=== PATIENT | male | born 1985 ===

== ENCOUNTER 2025-02-02 10:23 | Outpatient (AMB) | payer OTHER, SELFPAY ==
--- NOTE | 2025-02-02 10:26 | HO.SPINEOV ---
Vital Signs 02/02/25 10:38 Height 5 ft 9 in Weight 233 lb BMI 34.4 Intake Visit Reasons: lumbar radiculopathy Intake Note: Mr. Mary Johnson is here today c/o Neck and low back pain that radiates down the right leg causing numbness and tingling. 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 This is a 39-year-old diabetic gentleman presents to the office today for evaluation of low back pain and a right lumbar radiculopathy. He has had back pain for many years but tells me in the last 7 months he has had progression of the leg pain which starts in the right side of his low back goes into his buttock down his posterior hamstring into his posterior calf with tingling on the outer part of his right foot. The pain is aggravated with standing walking and moving. He was working at [employer] and being on his feet all day definitely seemed to make it worse. Through your office he has done conservative management including 2 separate cortisone injections. One was in the right S1 nerve root in that had no relief. The 2nd was L4-5 epidural and that made the symptoms aggravated but then they eventually came back down to normal level of symptoms. He has done physical therapy when he was living in [place] about a year and a half ago. He has been on tramadol, gabapentin, anti-inflammatories and cyclobenzaprine without any relief. He comes in today with an MRI showing stenosis at L2-3 and disc bulging on the right at L4-5. PMH: He is a diabetic, he can not recall what his A1c was. In the [facility] record of [place] it looks like his A1c was 6. He has some hypertension but that is well controlled as well. No history of cardiopulmonary disease or other systemic issues. He has never had surgery. Social hx: Smoke cigarettes less than a pack a day, no marijuana and occasionally drinks alcohol Medications: Lipitor lisinopril and metformin Allergies: No drug allergies Physical exam: Awake alert oriented, he is uncomfortable with standing and walking he has an antalgic gait, straight leg raise at 30 degrees, strength testing is limited secondary to pain throughout the whole right leg. Reflexes are intact at the patella and the Achilles. Imaging review: Lumbar MRI done at the [facility] shows that he has a congenitally narrow spinal canal, moderate to severe stenosis at L2-3, at L4-5 he has a disc protrusion on the right causing moderate to severe right lateral recess narrowing. At L5-S1 on the left he has disc bulging and posterior displacement of the left S1 nerve. Impression: 39-year-old male presents for evaluation of chronic back pain and superimposed right lumbar radiculopathy which developed about 7 months ago. It best localizes itself to the S1 distribution however the lumbar MRI does not show any compression of the S1 nerve locally at the disc space. His exam is limited secondary to pain with diffuse weakness throughout his whole right leg but it seems to be more pain related than actually neurologically weak. He has intact Achilles reflex and patellar. He does have stenosis at L2-3 centrally and L4-5 on the right in the lateral recess. It is possible that this is an atypical presentation, but given his history of diabetes we should see if we can localize this a little bit better. I will order an EMG of the right lower extremity to see if this is a diabetic polyneuropathy versus lumbar in origin. Hopefully the EMG can localize it to a level of the spine maybe the L4-5 where he has a lateral recess narrowing. Once the EMG is completed I will review the imaging with Dr. Bhardwaj and get back to the patient with the plan. Thank you for allowing us to care for your patient. The total time spent with this visit with this patient was 45 minutes reviewing history, physical exam, lumbar imaging review, and implementation of treatment plan or further diagnostic testing Kaveh Mir MD,PhD [facility] Orders: Orders NE electromyogram (EMG) Today M54.16 - Radiculopathy, lumbar region Coding Level of Care Code New Pt Level 4 (37235) Diagnoses Lumbar radiculopathy M54.16
[2025-02-02 10:38] VITALS: BMI 34.4
--- OUTSIDE RECORDS SUMMARY | 2025-02-02 11:41 | XMS_ITS | Clinical Summary ---
Author Organization [address] Address [address] [place] [phone] Phone Care Team Providers Care Spice Miller Name Role Phone Regino Camejo MD Primary Care Provider Allergies No known active allergies Medications nicotine polacrilex (COMMIT) 4 mg lozengeIndications :Tobacco dependency Dissolve 1 lozenge (4 mg total) in the mouth every 2 (two) hours if needed for smoking cessation. 30 lozenge 1 4 Active nicotine (NICODERM CQ) 21 mg/24 hrIndications:Toba chartered accountant dependency Place 1 patch on the skin 1 (one) time each day at the same time. 30 each 1 4 Active cyclobenzaprine (FLEXERIL) 10 mg tablet Take 1 tablet (10 mg total) by mouth 3 (three) times a day if needed for muscle spasms. 90 tablet 11 5 Active naproxen (NAPROSYN) 500 mg tablet Take 1 tablet (500 mg total) by mouth 2 (two) times a day if needed for mild pain (pain). 60 tablet 5 5 025 Active atorvastatin (LIPITOR) 20 mg tablet Take 1 tablet (20 mg total) by mouth 1 (one) time each day. 90 each 1 5 Active lisinopriL (PRINIVIL,ZESTRIL) 10 mg tablet Take 1 tablet (10 mg total) by mouth 1 (one) time each day. 90 each 1 5 Active metFORMIN XR (GLUCOPHAGE-XR) 500 mg 24 hr tablet Take 1 tablet (500 mg total) by mouth 2 (two) times a day with meals. Do not crush, chew, or split. 180 each 1 5 Active traMADoL (ULTRAM) 50 mg tabletIndications: Degeneration of intervertebral disc of lumbar region with discogenic back pain and lower extremity pain Take 2 tablets (100 mg total) by mouth 2 (two) times a day if needed for severe pain for up to 28 days. Max Daily Amount: 200 mg 112 tablet 5 025 Active traMADoL (ULTRAM) 50 mg tabletIndications: Degeneration of intervertebral disc of lumbar region with discogenic back pain and lower extremity pain Take 2 tablets (100 mg total) by mouth 2 (two) times a day if needed for severe pain for up to 28 days. Max Daily Amount: 200 mg 112 tablet 5 025 Discontin ued(Reord er) Active Problems Problem Noted Date Diagnosed Date Other hyperlipidemia 06/05/2024 Type 2 diabetes mellitus wit h obesity ([facility] V24, [facility] V28) 06/05/2024 Type 2 diabetes mellitus wit h hyperglycemia, without long-term current use of insulin ([facility] V24, [facility] V28) 06/05/2024 Metabolic dysfunction-associ ated steatotic liver disease (MASLD) 05/15/2024 Influenza vaccine refused 05/15/2024 Pneumococcal vaccine refused 05/15/2024 Lumbar degenerative disc disease 11/23/2022 Overview (08/21/2023): Last Assessment & Plan: Mr. Hernandez describes a 6-year history of low back pain and bilateral S1 distribution radiculopathy. He says his pain is 90% back and 10% legs. His MRI of the lumbar reveals desiccation at L4-5 and L5-S1 with out loss of height. There are minimal disc bulges and foraminal stenosis that likely correlate to his leg symptoms. He has been through physical therapy without relief. NSAIDs have not provided much relief and a course of oral steroids caused chest pain. We but we talked about nicotine and its relationship to accelerated degenerative changes in the spine. I made strong recommendations that he make every effort towards smoking cessation. We talked about his body habitus and I encouraged him to get as close as possible to his ideal body weight. We talked about acupuncture, yoga, natural anti-inflammatory agents, and inversion table all as reasonable conservative modalities. I used models and showed him what the future could hold with regards to lumbar fusion but encouraged him to make lifestyle changes that would help him avoid that conclusion. He said he had seen similar models in [place] and was not interested in any kind of surgery. He took some information on acupuncture and promised to try to quit smoking. He is welcome to follow-up with us in the future on an as-needed basis. Claustrophobia 07/17/2022 Hypertension 07/17/2022 Lumbar herniated disc 07/17/2022 Resolved Problems Problem Noted Date Diagnosed Date Resolved Date Obesity, morbid (CMS/HCC V24, CMS/HCC V28) 09/04/2024 09/04/2024 Encounters Date Type Department Care Team Description 11/20/2024 3:00 PM EDT Office Visit Adult Medicine [address] [phone] Heavenly Devries PA Primary hypertension (Primary Dx); Mixed hyperlipidemia; Type 2 diabetes mellitus with obesity (CMS/HCC V24, CMS/HCC V28); Metabolic dysfunction-associated steatotic liver disease (MASLD); Tobacco dependency; Lumbar herniated disc from Last 3 Months Immunizations Name Administration Dates Next Due Hepatitis A Adult (Havrix; Vaqta) 19yo and older 06/05/2024 Tdap Tetanus diptheria acell ular pertussis (Boostrix; Adacel) 7yo and older 10/18/2016 Surgical History Surgery Date Site/Laterality Comments OTHER SURGICAL HISTORY PROCEDURE: DENIES PREVIOUS SURGERY Medical History Medical History Date Comments HTN (hypertension) DX:HTN (hyper tension) Family History Medical History Relation Name Comments Hypertension Father Prostate cancer Father Relation Name Status Comments Father Social History Tobacco Use Types Packs/Day Years Used Date Smoking Tobacco: Some Days Smokeless Tobacco: Never Tobacco Cessation:Ready to Q uit: Not Asked; Counseling Given: Not Answered Alcohol Use Standard Drinks/Week Comments Yes 1 (1 standard drink = 0.6 oz pur e alcohol) Housing Instability Answer Date Recorde d Are you worried that in the next 2 months you may not have stable housing? No 10/14/2024 Food Access & Nutrition Answer Date Rec orded Do you have access to a vari ety of food including fruits and vegetables? Yes 10/14/2024 Health Literacy Answer Date Recorded How often do you need to hav e someone help you when you read instructions, pamphlets, or other written material from your doctor or pharmacy? Never 10/14/2024 Caregiver: How often do you need to have someone help you when you read instructions, pamphlets, or other written material from your doctor or pharmacy? Not on file 10/14/2024 Financial Risk Answer Date Recorded How hard is it for you to pa y for the very basics like food, housing, medical care, and air conditioning / heating? Not very hard 10/14/2024 Transportation Answer Date Recorded Has the lack of transportati on kept you from meetings, work, or from getting things needed for daily living? No Has the lack of transportati on kept you from medical appointments or from getting medications? No 10/14/2024 Social Isolation Answer Date Recorded How often do you feel lonely or isolated from th ose around you? Never 10/14/2024 Food Risk Answer Date Recorded Within the past 12 months we worried whether our food would run out before we got money to buy more. Never true 10/14/2024 Within the past 12 months th e food we bought just didn't last and we didn't have money to get more. Never true 10/14/2024 Dependent Care Answer Date Recorded Do you need help finding or paying for care for your loved ones. For example, child care worker or elderly care for an older adult? No 10/14/2024 Education Answer Date Recorded Do you think completing more education or training, like finishing a GED, going to college, or learning a trade, would be helpful for you? No 10/14/2024 Employment and Income Answer Date Recor ded During the last four weeks, have you been actively looking for work? No 10/14/2024 Living Situation Answer Date Recorded What is your living situation? 0 10/14/2024 Sex and Gender Information Value Date Recorded Sex Assigned at Not on file Legal Sex Male 12:31 PM EST Gender Identity Not on file Sexual Orientation Not on file Obstetrics History Last Filed Vital Signs Vital Sign Reading Time Taken Comments Blood Pressure 132/88 11/20/2024 2:49 PM EDT Pulse 95 11/20/2024 2:49 PM EDT Temperature 36.8 C (98.2 F) 11/20/2024 2:49 PM EDT Respiratory Rate 14 11/20/2024 2:49 PM EDT Oxygen Saturation 98% 05/15/2024 10:37 AM EST Inhaled Oxygen Concentration - - Weight 106 kg (234 lb 9.6 oz) 11/20/2024 2:49 PM EDT Height 175.3 cm (5' 9 ) 11/20/2024 2:49 PM EDT Body Mass Index 34.64 11/20/2024 2:49 PM EDT Plan of Treatment Upcoming Encounters Date Type Department Care Team (Late st Contact Info) Description 2025 3:30 PM EDT Office Visit Adult Medicine [facility] [address] [place] [phone] Regino Camejo MD [address] [place] [address] Health Maintenance Due Date Last Done Comments Diabetes: Annual Retina Eye Exam 1993 COVID-19 Vaccine ( season) 2024 Depression Screening 06/17/2024 01/10/2024 Diabetes: Blood Sugar Control Test (HGBA1C) 03/07/2025 09/04/2024, 05/29/2024 Diabetes: Annual Foot Exam 06/05/2025 06/05/2024 Diabetes: Annual Urine Albumin-Creatinine Ratio (uACR) 09/04/2025 09/04/2024 Diabetes: Annual GFR (Glomerular Filtration Rate) 09/04/2025 09/04/2024, 05/15/2024, 01/10/2024, Additional history exists Hypertension/CHF/CAD Annual BMP Blood Test 09/04/2025 09/04/2024, 05/15/2024, 01/10/2024, Additional history exists Social Influencers of Health Screening 10/14/2025 10/14/2024 DTaP,Tdap,and Td Vaccines (2 - Td or Tdap) 10/18/2026 10/18/2016 Cholesterol Screening (Lipid Panel) 09/04/2029 09/04/2024, 05/15/2024, 01/10/2024, Additional history exists HIV Screening Completed 12/21/2022 Hepatitis C Screening Completed 05/15/2024, 023 Hepatitis A Vaccines Aged Out 06/05/2024 No long er eligible based on patient's age to complete this topic HIB Vaccines Aged Out No longer eligi ble based on patient's age to complete this topic HPV Vaccines Aged Out No longer eligi ble based on patient's age to complete this topic Hepatitis B Vaccines Discontinued IPV Vaccines Aged Out No longer eligi ble based on patient's age to complete this topic Influenza Vaccine Discontinued MMR Vaccines Aged Out No longer eligi ble based on patient's age to complete this topic Meningococcal ACWY Vaccine Aged Out N o longer eligible based on patient's age to complete this topic Meningococcal B Vaccine Aged Out No l onger eligible based on patient's age to complete this topic Pneumococcal Vaccine: Pediatrics (0 to 5 Years) and At-Risk Patients (6 to 49 Years) Discontinued RSV Immunization Patients Under 20 months Aged Out No longer eligible based on patient's age to complete this topic Varicella Vaccines Aged Out No longer eligible based on patient's age to complete this topic Procedures Procedure Name Priority Date/Time Associated Diagnosis Comments MICROALBUMIN CREATININE URINE RATIO Routine 09/04/2024 10:33 AM EDT Type 2 diabetes mellitus with hyperglycemia, without long-term current use of insulin ([facility] V24, [facility] V28) [facility] 2 diabetes mellitus with obesity ([facility] V24, [facility] V28) COMPREHENSIVE METABOLIC PANEL Routine 09/04/2024 10:33 AM EDT Type 2 diabetes mellitus with hyperglycemia, without long-term current use of insulin ([facility] V24, [facility] V28) Type 2 diabetes mellitus with obesity ([facility] V24[facility] V28) HEMOGLOBIN A1C Routine 09/04/2024 10:33 AM EDT Type 2 diabetes mellitus with hyperglycemia, without long-term current use of insulin ([facility] V24, [facility] V28) Type 2 diabetes mellitus with obesity ([facility] V24, [facility]/HCC V28) LIPID PANEL WITH REFLEX TO DIRECT LDL Routine 09/04/2024 10:33 AM EDT Type 2 diabetes mellitus with hyperglycemia, without long-term current use of insulin (CMS/HCC V24, CMS/HCC V28) Type 2 diabetes mellitus with obesity (CMS/HCC V24, CMS/HCC V28) HEPATITIS PANEL, ACUTE WITH REFLEX TO CONFIRMATION Routine 05/15/2024 11:34 AM EST Metabolic dysfunction-associ ated steatotic liver disease (MASLD) DEPRESSION SCREENING Routine 01/10/2024 HIV SCREENING Routine 12/21/2022 from Last 3 Months or Most Recently Relevant to Health Maintenance Results * (ABNORMAL) Lipid panel with reflex to direct LDL (09/04/2024 10:33 AM EDT) Cholesterol 69 0 - 200 mg/dL LAB CHEMISTRY METHOD 09/04/2024 3:[address] [facility] Triglycerides 87 0 - 150 mg/dL LAB CHEMISTRY METHOD 09/04/2024 3:[address] [facility] HDL 27(L) >=40 mg/dL LAB CHEMISTRY METHOD 09/04/2024 3:[address] [facility] LDL Calculated 25 0 - 100 mg/dL LAB CHEMISTRY METHOD 09/04/2024 3:[address] [facility] VLDL Cholesterol Anoop 17.4 mg/dL LAB CHEMISTRY METHOD 09/04/2024 3:[address] [facility] Non HDL Chol. (LDL+VLDL) 42 <145 mg/dL LAB CHEMISTRY METHOD 09/04/2024 3:[address] [facility] Chol/HDL Ratio 2.6 0.0 - 4.4 LAB CHEMISTRY METHOD 09/04/2024 3:[address] [facility] Blood Venous blood specimen / Unknown Venipuncture / Unknown 09/04/2024 10:33 AM EDT 09/04/2024 10:33 AM EDT us Regino Camejo MD LAB BLOOD ORDERABLES F inal Result Performing Organization Address [facility]/ZIP Co de Phone Number [facility] [address] [place] [address], [place] [phone] * Microalbumin creatinine urine ratio (09/04/2024 10:33 AM EDT) Creatinine, Urine 152.0 mg/dL LAB CHEMISTRY METHOD 09/04/2024 3:39 PM EDT [facility] Microalb, Ur 10.0 0.0 - 29.0 mg/L LAB CHEMISTRY METHOD 09/04/2024 3:39 PM EDT [facility] Microalb/Creat Ratio 7 <30 mg/g creat LAB CHEMISTRY METHOD 09/04/2024 3:39 PM EDT [facility] Urine Urine specimen obtained by clean catch procedure / Unknown Non-blood Collection / Unknown 09/04/2024 10:33 AM EDT 09/04/2024 10:33 AM EDT us Regino Camejo MD LAB URINE ORDERABLES F inal Result Performing Organization Address City/[facility]/ZIP Co de Phone Number [facility] [address] [place] [address], [place] [phone] * Hemoglobin A1c (09/04/2024 10:33 AM EDT) Hemoglobin A1C 6.0 <6.5 % LAB CHEMISTRY METHOD 09/04/2024 1:31 PM EDT [facility] Mean Bld Glu Estim. 126 mg/dL LAB CHEMISTRY METHOD 09/04/2024 1:31 PM EDT [facility] Blood Venous blood specimen / Unknown Venipuncture / Unknown 09/04/2024 10:33 AM EDT 09/04/2024 10:33 AM EDT us Regino Camejo MD LAB BLOOD ORDERABLES F inal Result [facility] [address] [place] [address], [place] [phone] * Comprehensive metabolic panel (09/04/2024 10:33 AM EDT) [facility] Sodium 136 133 - 145 mmol/L LAB CHEMISTRY METHOD 09/04/2024 3:40 PM EDT [facility] Potassium 3.8 3.5 - 5.5 mmol/L LAB CHEMISTRY METHOD 09/04/2024 3:[address] [facility] Chloride 101 96 - 110 mmol/L LAB CHEMISTRY METHOD 09/04/2024 3:[address] [facility] CO2 28 21 - 32 mmol/L LAB CHEMISTRY METHOD 09/04/2024 3:[address] [facility] Anion Gap 7 3 - 11 LAB CHEMISTRY METHOD 09/04/2024 3:[address] [facility] Glucose 86 70 - 100 mg/dL LAB CHEMISTRY METHOD 09/04/2024 3:[address] [facility] BUN 15 5 - 25 mg/dL LAB CHEMISTRY METHOD 09/04/2024 3:40 PM T [facility] Creatinine 0.87 0.70 - 1.30 mg/dL LAB CHEMISTRY METHOD 09/04/2024 3:[address] [facility] eGFR 111 >=60 mL/min/1. 73m2 LAB CHEMISTRY METHOD 09/04/2024 3:[address] [facility] Comment:Calculation based on the Chronic Kidney Disease Epidemiology Collaboration (CKD-EPI) equation refit without adjustment for race. BUN/Creatinine Ratio 17.2 LAB CHEMISTRY METHOD 09/04/2024 3:40 PM EDT [facility] Calcium 9.2 8.5 - 10.5 mg/dL LAB CHEMISTRY METHOD 09/04/2024 3:40 PM EDT [facility] AST (SGOT) 21 10 - 42 unit/L LAB CHEMISTRY METHOD 09/04/2024 3:40 PM T [facility] ALT (SGPT) 51 10 - 60 unit/L LAB CHEMISTRY METHOD 09/04/2024 3:40 PM EDT [facility] Alkaline Phosphatase 88 42 - 121 unit/L LAB CHEMISTRY METHOD 09/04/2024 3:40 PM EDT [facility] Total Protein 7.2 6.0 - 8.0 g/dL LAB CHEMISTRY METHOD 09/04/2024 3:[address] [facility] Albumin 4.1 3.2 - 5.0 g/dL LAB CHEMISTRY METHOD 09/04/2024 3:[address] [facility] Total Bilirubin 0.5 0.0 - 1.4 mg/dL LAB CHEMISTRY METHOD 09/04/2024 3:[address] [facility] Blood Venous blood specimen / Unknown Venipuncture / Unknown 09/04/2024 10:33 AM EDT 09/04/2024 10:33 AM EDT Regino Camejo MD LAB BLOOD ORDERABLES F inal Result [facility] [address] [place] [address], * Hepatitis panel, acute with reflex to confirmation (05/15/2024 11:34 AM EST) Hepatitis B Surface Ag Negative Negative LAB CHEMISTRY METHOD 05/15/2024 2:58 PM EST [facility] Hepatitis A Antibody IgM Negative Negative LAB CHEMISTRY METHOD 05/15/2024 2:58 PM EST [facility] Hep B Core IgM Negative Negative LAB CHEMISTRY METHOD 05/15/2024 2:58 PM EST [facility] Hepatitis C Antibody Negative Negative LAB CHEMISTRY METHOD 05/15/2024 2:58 PM EST [facility] Blood Venous blood specimen / Unknown Venipuncture / Unknown 05/15/2024 11:34 AM EST 05/15/2024 11:34 AM EST Regino Camejo MD LAB BLOOD ORDERABLES F inal Result [facility] [address] [place] [address], * Depression Screening (01/10/2024) Depression Screening abstracted Historical Provider HEALTH MAINTENANCE Final Result * HIV Screening (12/21/2022) HIV Screening abstracted Historical Provider HEALTH MAINTENANCE Final Result from Last 3 Months or Most Recently Relevant to Health Maintenance [place] [address] [place] [id number] [employer]ALTH PLAN Care Teams Spice Miller Relationship Specialty Start Date End Date Regino Camejo MD [address] [place] [address] PCP - General 07/06/22
== END 2025-02-02 11:41 | disposition home or self-care (01) ==
LOC: HO.HNS 10:23
PROVIDERS: PCP Internal Medicine; Referring Provider Physician Assistant; Visit Provider Physician Assistant
DX: M54.16 Radiculopathy, lumbar region (principal)
CPT/HCPCS: 99204

== ENCOUNTER → 2025-02-02 10:23 | Outpatient (BNVA) | payer OTHER, SELFPAY | PROVIDERS: PCP Internal Medicine; Referring Provider Physician Assistant; Visit Provider Physician Assistant | DX: M54.16 Radiculopathy, lumbar region (principal) | CPT/HCPCS: 99202 ==

== ENCOUNTER 2025-05-28 14:38 | Outpatient (REF) | payer OTHER, SELFPAY ==
--- OUTSIDE RECORDS SUMMARY | 2025-05-28 19:50 | XMS_ITS | Clinical Summary ---
Author Organization [facility] [address] [place] [address] [place] [phone] Phone Care Team Providers Care Disc Inspector Name Role Phone Regino Camejo MD Primary Care Provider Allergies No known active allergies Medications cyclobenzaprine (FLEXERIL) 10 mg tablet Take 1 tablet (10 mg total) by mouth 3 (three) times a day if needed for muscle spasms. 90 tablet 11 10/15/19 25 Active naproxen (NAPROSYN) 500 mg tablet Take 1 tablet (500 mg total) by mouth 2 (two) times a day if needed for mild pain (pain). 60 tablet 5 10/15/19 25 025 Active atorvastatin (LIPITOR) 20 mg tablet Take 1 tablet (20 mg total) by mouth 1 (one) time each day. 90 each 1 11/21/19 25 Active lisinopriL (PRINIVIL,ZESTRIL ) 10 mg tablet Take 1 tablet (10 mg total) by mouth 1 (one) time each day. 90 each 1 11/21/19 25 Active traMADoL (ULTRAM) 50 mg tabletIndications :Degeneration of intervertebral disc of lumbar region with discogenic back pain and lower extremity pain Take 2 tablets (100 mg total) by mouth 2 (two) times a day if needed for severe pain. Max Daily Amount: 200 mg 112 tablet 05/21/20 25 Active Mounjaro 7.5 mg/0.5 mL injection Inject 0.5 mL (7.5 mg total) under the skin every 7 (seven) days. 2 mL 05/21/20 25 Active metFORMIN XR (GLUCOPHAGE-XR) 500 mg 24 hr tablet TAKE 1 TABLET (500 MG TOTAL) BY MOUTH 2 (TWO) TIMES A DAY WITH MEALS. DO NOT CRUSH, CHEW, OR SPLIT. 180 tablet 1 05/26/20 Active metFORMIN XR (GLUCOPHAGE-XR) 500 mg 24 hr tablet Take 1 tablet (500 mg total) by mouth 2 (two) times a day with meals. Do not crush, chew, or split. 180 each 1 11/21/19 25 025 Discontinued traMADoL (ULTRAM) 50 mg tabletIndications :Degeneration of intervertebral disc of lumbar region with discogenic back pain and lower extremity pain Take 2 tablets (100 mg total) by mouth 2 (two) times a day if needed for severe pain. Max Daily Amount: 200 mg 112 tablet 04/23/20 025 Discontinued(Re order) Mounjaro 5 mg/0.5 mL injectionIndicati ons: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 ([facility] V24, [facility] V28) Inject 0.5 mL (5 mg total) under the skin every 7 (seven) days. 2 mL 04/23/20 025 Discontinued Active Problems Problem Noted Date Diagnosed Date Other hyperlipidemia 06/05/2024 Type 2 diabetes mellitus with obesity 06/05/2024 Overview (03/17/2025): 03/17/25 Regulatory IMO Update Metabolic dysfunction-associ ated steatotic liver disease (MASLD) [...] said he had seen similar models in [place] and was not interested in any kind of surgery. He took some information on acupuncture and promised to try to quit smoking. He is welcome to follow-up with us in the future on an as-needed basis. 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 (CMS/HCC V24, CMS/HCC V28) (Primary Dx); Degeneration of intervertebral disc of lumbar region with discogenic back pain and lower extremity pain; Hypertension, unspecified type; Metabolic dysfunction-associated steatotic liver disease (MASLD); Long-term use of high-risk medication from Last 3 Months Immunizations Immunization Administration Dates Next Due Hepatitis A Adult (Havrix; Vaqta) 19yo and older 06/05/2024 Tdap Tetanus diptheria acell ular pertussis (Boostrix; Adacel) 7yo and older 10/18/2016 Surgical History Surgery Date Site/Laterality Comments OTHER SURGICAL HISTORY PROCEDURE: DENIES PREVIOUS SURGERY Medical History Medical History Date Comments HTN (hypertension) DX:HTN (hyper tension) Type 2 diabetes mellitus wit h hyperglycemia, without long-term current use of insulin ([facility] V24, [facility] V28) 06/05/2024 Family History Medical History Relation Name Comments [...] care for your loved ones. For example, children's zoo caretaker or elderly care for an older adult? [...] Date Recorded What is your living situation? Unrecognized valu e 10/14/2024 Sex and Gender Information Value Date Recorded Sex Assigned at Not on file Legal Sex Male 12:31 PM EST Gender Identity Not on file Sexual Orientation Not on file Last Filed Vital Signs Vital Sign Reading Time Taken Comments Blood Pressure 120/75 03/25/2025 1:29 PM EDT Pulse 96 03/25/2025 1:14 PM EDT Temperature 35.9 C (96.6 F) 03/25/2025 1:14 PM EDT Respiratory Rate 18 03/25/2025 1:14 PM EDT Oxygen Saturation 96% 03/25/2025 1:14 PM EDT Inhaled Oxygen Concentration - - Weight 110 kg (242 lb) 03/25/2025 1:14 PM EDT Height 175.3 cm (5' 9 ) 03/25/2025 1:14 PM EDT Body Mass Index 35.74 03/25/2025 1:14 PM EDT Plan of Treatment Upcoming Encounters Date Type Department Care Team (Late st Contact Info) Description 07/30/2025 1:00 PM EST Office Visit Adult Medicine [facility] [address] [place], [place] [phone] Regino Camejo MD [address] [place], [place] Health Maintenance Due Date Last Done Comments Drug Screen 1983 Naloxone Order 1983 Pain Assessment 1983 Diabetes: Annual Retina Eye Exam 1993 Depression Screening 06/17/2024 01/10/2024 COVID-19 Vaccine ( season) 2025 Diabetes: Annual Foot Exam 06/05/2025 06/05/2024 Diabetes: Blood Sugar Control Test (HGBA1C) 09/23/2025 03/25/2025, 09/04/2024, 05/29/2024 Social Influencers of Health Screening 10/14/2025 10/14/2024 Opioid Substance Agreement 11/14/2025 11/13/2025 Diabetes: Annual Urine Albumin-Creatinine Ratio (uACR) 03/25/2026 03/25/2025, 09/04/2024 Diabetes: Annual GFR (Glomerular Filtration Rate) 03/25/2026 03/25/2025, 09/04/2024, 05/15/2024, Additional history exists Hypertension/CHF/CAD Annual BMP Blood Test 03/25/2026 03/25/2025, 09/04/2024, 05/15/2024, Additional history exists DTaP,Tdap,and Td Vaccines (2 - Td or Tdap) 10/18/2026 10/18/2016 Cholesterol Screening (Lipid Panel) 03/25/2030 03/25/2025, 09/04/2024, 05/15/2024, Additional history exists RSV Immunization Adult Patients (1 - 1-dose 75+ series) 2058 HIV Screening Completed 12/21/2022 Hepatitis C Screening Completed 05/15/2024, 023 Hepatitis A Vaccines Aged Out 06/05/2024 No long er eligible based on patient's age to complete this topic HIB Vaccines Aged Out No longer eligi ble based on patient's age to complete this topic HPV Vaccines Discontinued Hepatitis B Vaccines Discontinued IPV Vaccines Aged [...] Procedure Name Priority Date/Time Associated Diagnosis Comments LIPID PANEL WITH REFLEX TO DIRECT LDL Routine 03/25/2025 1:47 PM EDT 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 ([facility]/HCC V24, [facility]/HCC V28) MICROALBUMIN CREATININE URINE RATIO Routine 03/25/2025 1:47 PM EDT 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 ([facility]/HCC V24, CMS/[facility] V28) COMPREHENSIVE METABOLIC PANEL Routine 03/25/2025 1:47 PM EDT 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 ([facility]/HCC V24, CMS/HCC V28) HEMOGLOBIN A1C Routine 03/25/2025 1:47 PM EDT 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 ([facility]/HCC V24, CMS/[facility] V28) LIVER FIBROSIS, FIBROTEST-ACTITEST PANEL Routine 03/25/2025 1:47 PM EDT Metabolic dysfunction-associ ated steatotic liver disease (MASLD) HEPATITIS PANEL, ACUTE WITH REFLEX TO CONFIRMATION Routine 05/15/2024 11:34 AM EST Metabolic dysfunction-associ ated steatotic liver disease (MASLD) DEPRESSION SCREENING Routine 01/10/2024 HIV SCREENING Routine 12/21/2022 from Last 3 Months or Most Recently Relevant to Health Maintenance Results * (ABNORMAL) Lipid panel with reflex to direct LDL (03/25/2025 1:47 PM EDT) Cholesterol 77 0 - 200 mg/dL LAB CHEMISTRY METHOD 03/25/2025 4:54 PM EDT [facility] Triglycerides 69 0 - 150 mg/dL LAB CHEMISTRY METHOD 03/25/2025 4:54 PM EDT [facility] HDL 32(L) >=40 mg/dL LAB CHEMISTRY METHOD 03/25/2025 4:54 PM EDT [facility] LDL Calculated 31 0 - 100 mg/dL LAB CHEMISTRY METHOD 03/25/2025 4:54 PM EDT [facility] Comment:Estimated LDL Calcul ated using equation: Total cholesterol - HDL cholesterol - (Triglycerides/5) VLDL Cholesterol Anoop 13.8 mg/dL LAB CHEMISTRY METHOD 03/25/2025 4:54 PM EDT [facility] Non HDL Chol. (LDL+VLDL) 45 <145 mg/dL LAB CHEMISTRY METHOD 03/25/2025 4:54 PM EDT [facility] Chol/HDL Ratio 2.4 0.0 - 4.4 LAB CHEMISTRY METHOD 03/25/2025 4:54 PM EDT [facility] Blood Venous blood specimen / Unknown Venipuncture / Unknown 03/25/2025 1:47 PM EDT 03/25/2025 1:47 PM EDT us Regino Camejo MD LAB BLOOD ORDERABLES F inal Result [facility] [address] [place] [address], * Liver fibrosis, fibrotest-actitest panel (03/25/2025 1:47 PM EDT) Fibrosis Score 0.34 04/01/2025 1:38 PM EDT [facility] Fibrosis Stage F1-F2 04/01/2025 1:38 PM EDT [facility] Fibrosis Interpretation SEE NOTE 04/01/2025 1:38 PM EDT [facility] Comment: minimal fibrosis Fibro Test Score (f) Metavir Score f>=0 and f<=0.21 : F0 (no fibrosis) f>0.21 and f<=0.27 : F0-F1 (no fibrosis) f>0.27 and f<=0.31 : F1 (minimal fibrosis) f>0.31 and f<=0.48 : F1-F2 (minimal fibrosis) f>0.48 and f<=0.58 : F2 (moderate fibrosis) f>0.58 and f<=0.72 : F3 (advanced fibrosis) f>0.72 and f<=0.74 : F3-F4 (advanced fibrosis) f>0.74 and f<=1.00 : F4 (severe fibrosis) Necroinflammat Activity Score 0.17 04/01/2025 1:38 PM EDT [facility] Necroinflammat Activity Grade A0 04/01/2025 1:38 PM EDT [facility] Necroinflammat Interpretation SEE NOTE 04/01/2025 1:38 PM EDT [facility] Comment: no activity ActiTest Score (a) Metavir Score a>=0 and a<=0.17 : A0 (no activity) a>0.17 and a<=0.29 : A0-A1 (no activity) a>0.29 and a<=0.36 : A1 (minimal activity) a>0.36 and a<=0.52 : A1-A2 (minimal activity) a>0.52 and a<=0.60 : A2 (significant activity) a>0.60 and a<=0.62 : A2-A3 (significant activity) a>0.62 and a<=1.00 : A3 (severe activity) Bilirubin Total 0.5 0.2 - 1.2 mg/dL 04/01/2025 1:38 PM EDT [facility] Gamma Glutamyl Transferase (GGT) 20 3 - 95 U/L 04/01/2025 1:38 PM EDT [facility] Alanine Aminotransferase (ALT) 32 9 - 46 U/L 04/01/2025 1:38 PM EDT [facility] [id number] n 261 106 - 279 mg/dL 04/01/2025 1:38 PM EDT [facility] Haptoglobin 119 43 - 212 mg/dL 04/01/2025 1:38 PM EDT [facility] Apolipoprotein A1 112 94 - 176 mg/dL 04/01/2025 1:38 PM EDT [facility] Reference ID [id number] 04/01/2025 1:38 PM EDT [facility] Footnote SEE NOTE 04/01/2025 1:38 PM EDT [facility] Comment: The reliability of results is dependent on compliance with the preanalytical and analytical conditions recommended by avocarrot. The tests have to be deferred for: acute hemolysis, acute hepatitis, acute inflammation, extra hepatic cholestasis. The advice of a specialist should be sought for interpretation in chronic hemolysis and Gilbert's syndrome. The test interpretation is not validated in liver transplant patients. Isolated extreme values of one of the components should lead to caution in interpreting the results. In case of discordance between a biopsy result and a test, it is recommended to seek the advice of a specialist. The causes of these discordances could be due to a flaw of the test or to a flaw in the biopsy: i.e. a liver biopsy has a 33% variability rate for one fibrosis stage. FibroTest is interpretable for chronic hepatitis B and C, alcoholic and non alcoholic steatosis. ActiTest is interpretable for chronic hepatitis B and C. The performance characteristics have been determined by [facility]. It has not been cleared or approved by the U.S. Food and Drug Administration. Performance characteristics refer to the analytical performance of the test. [employer], the associated logo, [employer] and all associated [employer] villaseñor are the registered trademarks of [employer]. All third alliance party villaseñor - (R) and (TM) - are the property of their respective owners. (C) [id number] [employer]. All rights reserved. Test Performed at: [facility] [address] [place] [id number] Rodrigue Goldsmith MD, PhD, DASHAWN Blood Venous blood specimen / Unknown Venipuncture / Unknown 03/25/2025 1:47 PM EDT 03/25/2025 1:47 PM EDT us Regino Camejo MD LAB BLOOD ORDERABLES F inal Result [facility] [address] [place] [address] * Microalbumin creatinine urine ratio (03/25/2025 1:47 PM EDT) Creatinine, Urine 169.0 mg/dL LAB CHEMISTRY METHOD 03/25/2025 5:19 PM EDT [facility] Microalb, Ur 12.6 0.0 - 29.0 mg/L LAB CHEMISTRY METHOD 03/25/2025 5:19 PM EDT [facility] Microalb/Creat Ratio 7 <30 mg/g creat LAB CHEMISTRY METHOD 03/25/2025 5:19 PM EDT [facility] Urine Urine specimen obtained by clean catch procedure / Unknown Non-blood Collection / Unknown 03/25/2025 1:47 PM EDT 03/25/2025 1:47 PM EDT us Regino Camejo MD LAB URINE ORDERABLES F inal Result Performing Organization Address City/[facility]/ZIP Co de Phone Number [facility] [address] [place] [address], [place] [phone] * Hemoglobin A1c (03/25/2025 1:47 PM EDT) Hemoglobin A1C 6.2 <6.5 % LAB CHEMISTRY METHOD 03/25/2025 9:50 PM EDT [facility] Mean Bld Glu Estim. 131 mg/dL LAB CHEMISTRY METHOD 03/25/2025 9:50 PM EDT [facility] Blood Venous blood specimen / Unknown Venipuncture / Unknown 03/25/2025 1:47 PM EDT 03/25/2025 1:47 PM EDT us Regino Camejo MD LAB BLOOD ORDERABLES F inal Result [facility] [address] [place] [address], [place] [phone] * (ABNORMAL) Comprehensive metabolic panel (03/25/2025 1:47 PM EDT) Sodium 138 133 - 145 mmol/L LAB CHEMISTRY METHOD 03/25/2025 4:54 PM EDT [facility] Potassium 4.4 3.5 - 5.5 mmol/L LAB CHEMISTRY METHOD 03/25/2025 4:54 PM [facility] Chloride 105 96 - 110 mmol/L LAB CHEMISTRY METHOD 03/25/2025 4:54 PM [facility] CO2 30 21 - 32 mmol/L LAB CHEMISTRY METHOD 03/25/2025 4:54 PM [facility] Anion Gap 3 3 - 11 LAB CHEMISTRY METHOD 03/25/2025 4:54 PM [facility] Glucose 120(H) 70 - 100 mg/dL LAB CHEMISTRY METHOD 03/25/2025 4:54 PM [facility] BUN 14 5 - 25 mg/dL LAB CHEMISTRY METHOD 03/25/2025 4:54 PM [facility] Creatinine 0.81 0.70 - 1.30 mg/dL LAB CHEMISTRY METHOD 03/25/2025 4:54 PM [facility] eGFR 113 >=60 mL/min/1. 73m2 LAB CHEMISTRY METHOD 03/25/2025 4:54 PM [facility] Comment:Calculation based on the Chronic Kidney Disease Epidemiology Collaboration (CKD-EPI) equation refit without adjustment for race. BUN/Creatinine Ratio 17.3 LAB CHEMISTRY METHOD 03/25/2025 4:54 PM [facility] Calcium 9.4 8.5 - 10.5 mg/dL LAB CHEMISTRY METHOD 03/25/2025 4:54 PM [facility] AST (SGOT) 25 10 - 42 unit/L LAB CHEMISTRY METHOD 03/25/2025 4:54 PM [facility] ALT (SGPT) 66(H) 10 - 60 unit/L LAB CHEMISTRY METHOD 03/25/2025 4:54 PM [facility] Alkaline Phosphatase 82 42 - 121 unit/L LAB CHEMISTRY METHOD 03/25/2025 4:54 PM [facility] Total Protein 7.6 6.0 - 8.0 g/dL LAB CHEMISTRY METHOD 03/25/2025 4:54 PM EDT [facility] Albumin 4.3 3.2 - 5.0 g/dL LAB CHEMISTRY METHOD 03/25/2025 4:54 PM EDT [facility] Total Bilirubin 0.5 0.0 - 1.4 mg/dL LAB CHEMISTRY METHOD 03/25/2025 4:54 PM EDT [facility] Blood Venous blood specimen / Unknown Venipuncture / Unknown 03/25/2025 1:47 PM EDT 03/25/2025 1:47 PM EDT Regino Camejo MD LAB BLOOD ORDERABLES F inal Result Performing Organization Address City/[facility]/ZIP Co de Phone Number [facility] [address] [place] [address], [place] [phone] * Hepatitis panel, acute with reflex to [...] 11:34 AM EST 05/15/2024 11:34 AM EST us Regino Camejo MD LAB BLOOD ORDERABLES F inal Result Performing Organization Address City/[facility]/ZIP Co de Phone Number [facility] [address] [place] [address], [place] [phone] * Depression Screening (01/10/2024) Depression Screening abstracted us Historical Provider HEALTH MAINTENANCE Final Result * HIV Screening (12/21/2022) HIV Screening abstracted us Historical Provider HEALTH MAINTENANCE Final Result from Last 3 Months or Most Recently Relevant to Health Maintenance Insurance [employer] Care Teams Disc Inspector Relationship Specialty Start Date End Date Regino Camejo MD [address] [place] [phone] PCP - General 07/06/22
--- OUTSIDE RECORDS SUMMARY | 2025-05-28 19:50 | XMS_ITS | Encounter Summary ---
Author Organization [facility] Address [address] [place] [address] Care Team Providers Care Flour Broker Name Role Phone Regino Camejo MD Primary Care Provider Encounter Details Date Type Department Care Team ([facility] st Contact Info) Description 03/29/2025 Results Follow-Up Adult Medicine [facility] [address], [place] [phone] Regino Camejo MD [address] [place], [place] Social History Tobacco Use Types Packs/Day Years Used Date Smoking Tobacco: Some Days Smokeless Tobacco: Never Alcohol Use Standard Drinks/Week Comments Yes 1 [...] care for your loved ones. For example, childcare teacher or elderly care for an older adult? [...] on file Sexual Orientation Not on file documented as of this encounter Plan of Treatment Upcoming Encounters Date Type Department Care Team (Late st Contact Info) Description 07/30/2025 1:00 PM EST Office Visit Adult Medicine [address] [phone] Regino Camejo MD [address], [place] documented as of this encounter Visit Diagnoses Not on filedocumented in this encounter Care Teams Flour Broker Relationship Specialty Start Date End Date Regino Camejo MD [address] [place] [address] PCP - General 07/06/22 documented as of this encounter
== END 2025-05-28 14:39 | disposition home or self-care (01) ==
LOC: HO.NEURO 14:38
PROVIDERS: PCP Internal Medicine; Visit Provider Physician Assistant
DX: M54.16 Radiculopathy, lumbar region (principal)
CPT/HCPCS: 95886; 95909

== ENCOUNTER → 2025-05-28 14:44 | Outpatient (BNV) | payer OTHER, SELFPAY | PROVIDERS: PCP Internal Medicine; Visit Provider Physical Medicine & Rehabilitation | DX: G57.31 Lesion of lateral popliteal nerve, right lower limb (principal) | CPT/HCPCS: 95886; 95909 ==